=== PATIENT | male | born 1975 ===

== ENCOUNTER 2023-05-06 09:04 | Observation (INO) ==
[2023-05-06] MEDS ORDERED: IOPAMIDOL 100 ML BOTTLE IV ONE (09:05)
[2023-05-06] MEDS ORDERED: 0.9 % SODIUM CHLORIDE 1,000 ML IV ONE ×2 (09:30→10:51)
[2023-05-06 09:34] LABS: POC Calcium, Ionized 1.17 (1.16-1.32); POC Creatinine 0.6 (0.6-1.2)
[2023-05-06] MEDS ORDERED: LORazepam 0.5 MG TABLET PO ONE ×3 (10:40→15:14)
[2023-05-06] MEDS ORDERED: MECLIZINE 25 MG TABLET PO ONE ×2 (10:40→15:14)
[2023-05-06] MEDS ORDERED: LORazepam 1 MG TABLET PO ONE ×2 (10:53→15:26)
[2023-05-06 13:34] LABS: Basophils # (Auto) 0.06 K/mcL (0.00-0.30); Basophils % (Auto) 0.6 % (0.0-2.0); Eosinophils % (Auto) 0.9 % (0.0-7.0); Hematocrit 49.7 % (40.1-51.0); Hemoglobin 16.2 g/dL (13.7-17.5); Lymphocytes % (Auto) 16.7 % (15.5-49.0); Mean Corpuscular HGB Conc 32.6 g/dL (31.0-36.0); Mean Platelet Volume 9.5 fL (8.8-12.5); Monocytes # (Auto) 0.86 K/mcL (0.10-0.90); Neutrophils % (Auto) 73.4 % (38.0-78.0); Platelet Count 359 K/mcL (140-440); RBC 5.23 M/mcL (4.63-6.08); Red Cell Distribution Width 13.2 % (11.5-14.5); WBC 10.8 K/mcL (4.5-11.0)
[2023-05-06] MEDS ORDERED: IPRATROPIUM/ALBUTEROL 3 ML AMPUL.NEB NEB PRN (16:50)
[2023-05-06] MEDS ORDERED: LORazepam 2 MG/ML VIAL IV PRN (16:50)
[2023-05-06] MEDS ORDERED: diphenhydrAMINE 50 MG/ML VIAL IV PRN (16:50)
[2023-05-06] MEDS ORDERED: SENNOSIDES 1 TABLET PO PRN (16:50)
[2023-05-06] MEDS ORDERED: ONDANSETRON 4 MG/2 ML VIAL IV PRN (16:50)
[2023-05-06] MEDS ORDERED: MAGNESIUM SULFATE 2 GM/50 ML BAG IV PRN (16:50)
[2023-05-06] MEDS ORDERED: POTASSIUM CHLORIDE 40 MEQ in DEXTROSE 5% IN WATER 500 ML IV PRN (16:50)
[2023-05-06] MEDS ORDERED: ACETAMINOPHEN 325 MG TABLET PO PRN (16:50)
[2023-05-06] MEDS ORDERED: POTASSIUM CHLORIDE 20 MEQ TABLET PO PRN ×2 (16:50)
[2023-05-06] MEDS ORDERED: LABETALOL HCL 20 MG/4 ML VIAL IV PRN (17:13)
[2023-05-06] MEDS: LIDOCAINE 4% TOP PATCH TOPICAL SCH (19:13)
[2023-05-06] MEDS: CARBIDOPA/LEVODOPA 25/100 TABLET PO SCH (20:47)
[2023-05-06] MEDS: 0.9 % SODIUM CHLORIDE 10 ML SYRINGE IV SCH (20:49)
[2023-05-06] MEDS ORDERED: ATORVASTATIN 40 MG TABLET PO SCH (21:00)
[2023-05-06] MEDS ORDERED: GABAPENTIN 300 MG CAPSULE PO SCH (21:00)
[2023-05-06] MEDS ORDERED: PRAMIPEXOLE 0.25 MG TABLET PO SCH (21:00)
[2023-05-07] MEDS: 0.9 % SODIUM CHLORIDE 10 ML SYRINGE IV SCH (05:25)
[2023-05-07 07:07] LABS: ALT/SGPT 27 U/L (<40); AST/SGOT 21 U/L (<40); Albumin 3.7 gm/dL (3.2-5.2); Albumin/Globulin Ratio 1.2 (1.0-2.3); Alkaline Phosphatase 99 U/L (39-117); Bilirubin,Direct < 0.2 mg/dL (0-0.3); Bilirubin,Total 0.5 mg/dL (0.1-1.0); Blood Urea Nitrogen 8 mg/dL (6-20); Carbon Dioxide 24 mmol/L (22-30); Chloride 103 mmol/L (96-108); Glomerular Filtration Rate 111; Glucose 101 mg/dL (70-105); Lactate Dehydrogenase 149 U/L (135-225); Phosphorous 2.8 mg/dL (2.5-4.5); Triglycerides 70 mg/dL (<150); Uric Acid 4.5 mg/dL (2.5-8.0)
[2023-05-07] MEDS ORDERED: PANTOPRAZOLE 40 MG TABLET PO SCH (07:30)
[2023-05-07] MEDS ORDERED: MECLIZINE 25 MG TABLET PO PRN (07:52)
[2023-05-07] MEDS: CARBIDOPA/LEVODOPA 25/100 TABLET PO SCH (08:51)
[2023-05-07] MEDS ORDERED: amLODIPine 5 MG TABLET PO SCH (09:00)
[2023-05-07] MEDS ORDERED: ASPIRIN 81 MG TAB.CHEW PO SCH ×2 (09:00)
[2023-05-07] MEDS ORDERED: ENOXAPARIN 40 MG/0.4 ML SYRINGE SQ SCH (09:00)
[2023-05-07] MEDS: LIDOCAINE 4% TOP PATCH TOPICAL SCH (10:02)
[2023-05-07] MEDS ORDERED: MECLIZINE 25 MG TABLET PO SCH (13:00)
== END 2023-05-07 14:06 | disposition home or self-care (01) ==
LOC: ED 09:04 → ICU 09:04
PROVIDERS: ADMIT Internal Medicine; ATTEND Internal Medicine